=== PATIENT | female | born 1970 | race Caucasian/White ===

== ENCOUNTER 2017-03-13 01:20 | Emergency (ER) | payer MEDICARE ==
[~2017-03-13] VITALS: Ht 170.2 cm; Wt 81.6 kg
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
[2017-03-13 02:18] VITALS: BP 127/57
[2017-03-13] MEDS ORDERED: AMOX1TAB10 PO (04:55)
[2017-03-13] MEDS ORDERED: PROAIR HFA8.5 GM INH (04:55)
== END 2017-03-13 05:25 | disposition home or self-care (01) ==
LOC: ER 01:20
DX: T74.11XA Adult physical abuse, confirmed, initial encounter (principal); Z88.1 Allergy status to other antibiotic agents; Z88.2 Allergy status to sulfonamides; Y08.89XA Assault by other specified means, initial encounter; Y93.89 Activity, other specified; Y92.89 Other specified places as the place of occurrence of the external cause; Y99.8 Other external cause status
CPT/HCPCS: 99284